=== PATIENT | female | born 2005 | race Caucasian/White ===

== ENCOUNTER 2024-08-14 11:06 | Outpatient (CLI) | payer BC, SELFPAY | END 2024-08-14 11:07 | disposition home or self-care (01) | LOC: FBOREF 11:08 | PROVIDERS: PCP Family Medicine; Visit Provider Family Medicine | DX: E07.9 Disorder of thyroid, unspecified (principal) | CPT/HCPCS: 84443 ==

== ENCOUNTER 2024-08-15 14:30 | Outpatient (CLI) | payer BC, SELFPAY ==
--- NOTE | 2024-08-15 14:45 | CRLHL7_ITS ---
For Patients: As a result of the Century Cures Act, medical imaging exams and procedure reports are released immediately into your electronic medical record. You may view this report before your referring provider. If you have questions, please contact your health care provider. INDICATION: Lump on anterior / left aspect of the neck. COMPARISON: none TECHNIQUE: Coker scale and color Doppler images were acquired of the thyroid gland. FINDINGS: The thyroid gland demonstrates normal uniform echogenicity and has a smooth outer contour. The right lobe measures 4.7 x 1.3 x 1.5 cm and the left lobe measures 4.7 x 1.1 x 1.4 cm in size. Isthmus measures 1.8 millimeters. There are no suspicious masses or nodules. The color Doppler images demonstrate normal vascularity. Left anterior neck lymph node measures 1.3 x 0.5 x 1.4 cm. IMPRESSION: Normal thyroid ultrasound. Normal left cervical lymph node. No suspicious findings. Dictated by Delgado Roque MD @ 08/15/2024 4:15:28 PM (Electronically Signed)
== END 2024-08-15 14:31 | disposition home or self-care (01) ==
LOC: US 14:30
PROVIDERS: PCP Family Medicine; Visit Provider Family Medicine
DX: R22.1 Localized swelling, mass and lump, neck (principal)
CPT/HCPCS: 76536